=== PATIENT | male | born 1990 | race Caucasian/White ===

== ENCOUNTER 2019-07-08 15:13 | Emergency (ER) | payer MEDICAID, OTHER ==
[~2019-07-08] VITALS: Ht 175.3 cm; Wt 104.5 kg
[2019-07-08 15:45] LABS: BASOPHILS # (AUTO) 0.1 X10'3 (0-0.2); BASOPHILS % (AUTO) 0.6 % (0-1); EOSINOPHILS # (AUTO) 0.1 X10'3 (0-0.9); EOSINOPHILS % (AUTO) 1.6 % (0-6); HEMATOCRIT 45.7 % (42.0-52.0); HEMOGLOBIN 15.9 g/dl (14.0-17.9); LYMPHOCYTES # (AUTO) 2.2 X10'3 (1.1-4.8); LYMPHOCYTES % (AUTO) 25.5 % (21-51); MEAN CORPUSCULAR HEMOGLOBIN 30.5 PG (27.0-31.0); MEAN CORPUSCULAR HGB CONC 34.8 g/dL (33.0-36.5); MEAN CORPUSCULAR VOLUME 87.7 FL (78-98); MONOCYTES # (AUTO) 0.7 X10'3 (0-0.9); MONOCYTES % (AUTO) 8.5 % (2-12); NEUTROPHILS # (AUTO) 5.5 X10'3 (1.8-7.7); NEUTROPHILS % (AUTO) 63.8 % (42-75); PLATELET COUNT 217 X10'3 (140-440); RED BLOOD COUNT 5.21 X10'6 (4.70-6.10); WHITE BLOOD COUNT 8.7 X10'3 (4.5-11.0)
[2019-07-08 16:01] LABS: PARTIAL THROMBOPLASTIN TIME 30 SECONDS (22-32)
[2019-07-08 16:05] LABS: ALANINE AMINOTRANSFERASE 88 U/L (12-78); ALBUMIN 4.1 G/DL (3.4-5.0); ALBUMIN/GLOBULIN RATIO 1.1 (1.1-1.5); ALKALINE PHOSPHATASE 100 IU/L (46-116); ANION GAP 13 (8-16); ASPARTATE AMINO TRANSFERASE 54 U/L (10-37); BILIRUBIN,TOTAL 0.4 MG/DL (0.1-1.0); BLOOD UREA NITROGEN 14 MG/DL (7-18); BUN/CREATININE RATIO 14.3 (5.4-32.0); CALCIUM 9.1 MG/DL (8.5-10.1); CHLORIDE 103 MMOL/L (99-107); CREATININE 0.98 MG/DL (0.60-1.10); GLUCOSE 93 MG/DL (70-104); POTASSIUM 3.7 MMOL/L (3.5-5.1); SODIUM 139 MMOL/L (135-145); TOTAL CARBON DIOXIDE 22.9 MMOL/L (24-32); TOTAL PROTEIN 7.9 G/DL (6.4-8.2); eGFR 90 ML/MIN
[2019-07-08] MEDS ORDERED: hydrOXYzine 25 MG tablet PO ONE (16:20)
[2019-07-08] MEDS ORDERED: ibuprofen tablet 400 MG TABLET PO ONE (16:20)
[2019-07-08] MEDS ORDERED: normal saline 1000ML IV soln IVB ONE (16:25)
[2019-07-08] MEDS ORDERED: LORazepam 1 MG tablet PO ONE (17:20)
--- NOTE | 2019-07-08 19:46 | NUR ---
3 hr trop just drawn, mother at bedside, Pt with stable vs. pain to left chest continues and is currently 2 out of 10 and nonradiating. baudilio pillai just in to talke with pt . awavijayig 3 hr trop result.
[2019-07-08 20:18] VITALS: BP 133/77
--- NOTE | 2019-07-08 20:18 | NUR ---
RAMSEY JIMENEZ TALKING WITH PT ABOUT 3 HR TROP RESULTS AND DC PLAN. [facility]
== END 2019-07-08 20:24 | disposition home or self-care (01) ==
LOC: ER 15:14
DX: R07.89 Other chest pain (principal); R42 Dizziness and giddiness; F41.9 Anxiety disorder, unspecified; Z87.891 Personal history of nicotine dependence
CPT/HCPCS: 36415; 71045; 80053; 84484; 85025; 85610; 85730; 93005; 96360; 99284; J7030; Z7610

== ENCOUNTER 2019-08-02 05:34 | Emergency (ER) | payer MEDICAID, OTHER ==
[~2019-08-02] VITALS: Ht 175.3 cm; Wt 108.5 kg
[2019-08-02] MEDS ORDERED: ketorolac trometh. 30mg/ml inj. IM ONE (06:10)
[2019-08-02] MEDS ORDERED: metoclopramide 5 mg/ml inj IM ONE (06:10)
[2019-08-02] MEDS ORDERED: diphenhydrAMINE 50 mg/ml inj IM ONE (06:10)
--- NOTE | 2019-08-02 08:03 | NUR ---
PT REPORTS LESTER PAIN IS NOW A 0/10.
[2019-08-02 08:04] VITALS: BP 154/107
== END 2019-08-02 08:05 | disposition home or self-care (01) ==
LOC: ER 05:34
DX: G43.909 Migraine, unspecified, not intractable, without status migrainosus (principal); F17.220 Nicotine dependence, chewing tobacco, uncomplicated
CPT/HCPCS: 96372; 99283; J1200; J1885; J2765